=== PATIENT | female | born 1955 | race African-American/Black ===

== ENCOUNTER 2017-01-10 23:46 | Inpatient (IN) | payer OTHER ==
--- NOTE | ~2017-01-10 | EGD ---
EGD REPORT [facility] [address] [id number] NAME: KIM SANTANA : [birth year] STATUS : ADM IN PAT#: [id number] AGE: 61 ADM/REG DATE : 01/11/17 MR#: [id number] REPORT SERV DATE: 01/12/17 DICTATED BY: JENNIFER NUNO DATE: 01/12/17 REPORT STATUS : Draft TRANSCRIBED BY: [employer] DATE: 01/12/17 [facility] Patient Name: Kim Santana Date of : 1955 Attending MD: JENNIFER NUNO, Procedure Date No Time: 01/12/2017 Procedure: Upper GI endoscopy Indications: Abdominal pain, Hematemesis Medicines: Propofol per Anesthesia Complications: No immediate complications. Estimated blood loss: None. Procedure: Pre-Anesthesia Assessment: - ASA Grade Assessment: III - A patient with severe systemic disease. After obtaining informed consent, the endoscope was passed under direct vision. Throughout the procedure, the patient's blood pressure, pulse, and oxygen saturations were monitored continuously. The GIF [id number] was introduced through the mouth, and advanced to the second part of duodenum. The upper GI endoscopy was accomplished with ease. The patient tolerated the procedure well. Findings: LA Grade D (one or more mucosal breaks involving at least 75% of esophageal circumference) esophagitis with no bleeding was found 35 to 40 cm from the incisors. Biopsies were taken with a cold forceps for histology. Estimated blood loss: none. The Z-line was found 40 cm from the incisors. No gross lesions were noted in the stomach. The duodenal bulb and 2nd part of the duodenum were normal w exception of diminuitive non-bleeding AVM in the proximal D2. Impression: - LA Grade D esophagitis. Biopsied. - Z-line 40 cm from the incisors. - No gross lesions in the stomach. - Diminuitive, non-bleeding AVM (prox D2) - Normal duodenal bulb and 2nd part of the duodenum. Recommendation: - Return patient to hospital varghese for ongoing care. - Full liquid diet and advance as tolerated. - Use Protonix (pantoprazole) 40 mg PO BID for 8 weeks. - No aspirin, ibuprofen, naproxen, or other non-steroidal anti-inflammatory drugs. - Follow an antireflux regimen. - Await pathology results. EGD REPORT [place] [id number] [facility] [place]. [address] NAME: KIM SANTANA : [birth year] STATUS : ADM IN [facility]#: [id number] AGE: 61 ADM/REG DATE : 01/11/17 MR#: [id number] REPORT SERV DATE: 01/12/17 DICTATED BY: JENNIFER NUNO DATE: 01/12/17 REPORT STATUS : Draft TRANSCRIBED BY: [employer] DATE: 01/12/17 - Return to GI clinic in 4 weeks. Procedure Code(s): --- Professional --- 28216, Esophagogastroduodenoscopy, flexible, transoral; with biopsy, single or multiple Diagnosis Code(s): --- Professional --- K20.9, Esophagitis, unspecified R10.9, Unspecified abdominal pain K92.0, Hematemesis CPT copyright 2013 [employer] [place] [employer]. All rights reserved. The codes documented in this report are preliminary and upon vocational rehab consultant review may be revised to meet current compliance requirements. JENNIFER NUNO, 01/12/2017 12:56 PM This report has been signed electronically. Number of Addenda: 0 Note Initiated On: 01/12/2017 12:23 PM Scope Withdrawal Time 0 hours 0 minutes 0 seconds [id number] [id number]
--- NOTE | ~2017-01-10 | HP ---
History And Physical [facility] [address] [place]. [address] NAME: MACEY SANTANA : [birth year] STATUS : REG ER PAT#: [id number] AGE: 61 ADM/REG DATE : 01/10/17 MR#: [id number] REPORT SERV DATE: 01/11/17 DICTATED BY: ANDREW CHAVEZ DATE: 01/11/17 REPORT STATUS : Draft TRANSCRIBED BY: MODL DATE: 01/11/17 DATE OF ADMISSION: 01/10/2017 CHIEF COMPLAINT: Abdominal pain and vomiting. HISTORY OF PRESENT ILLNESS: This is a 61-year-old female, who communicates via writing on a clipboard or sign language as she has complete hearing loss. She presents to the emergency room at [facility] with the above-mentioned complaints. 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 Information on the [employer] system was also reviewed by me today. According to the patient, she had started having severe abdominal pain today which was associated with vomiting. She says the vomitus has blood in it. A detailed history could not be obtained due to the barriers mentioned above. However, the patient did not fall down or pass out. She was brought to the emergency room subsequently. In the emergency room, her Gastroccult was positive, she had an acute upper gastrointestinal bleed. Her H and H were stable at this time. She also had hyperkalemia and acute kidney injury. Hospitalist Service is asked to admit her for further evaluation and treatment. At the time of my evaluation, she denied any chest pain or palpitations. She had no orthopnea obviously. She had no cough, hemoptysis, night sweats, or weight loss recently. She has not had any fevers or chills. No history of falls or loss of consciousness. She did have nausea with vomiting as mentioned above with abdominal pain which she states is generalized all over her abdomen. PAST MEDICAL HISTORY: Significant for gastroesophageal reflux disease. SOCIAL HISTORY: She does not smoke, drink. She has complete hearing loss, and communicates via writing on a clipboard. FAMILY HISTORY: Noncontributory. MEDICATIONS: Reviewed in the chart today. REVIEW OF SYSTEMS: As in history of present illness. All other systems were reviewed in detail and are quite unremarkable. PHYSICAL EXAMINATION: GENERAL: This is a 61-year old who has complete hearing loss as mentioned above. She is alert, awake, oriented. HEENT: Her head appears to be atraumatic, normocephalic. Her pupils are equal, reacting to light and accommodating. External ocular muscles are intact. Membranes are moist and pink. Sclerae are nonicteric. NECK: Supple with no jugular venous distention, lymphadenopathy, or thyromegaly. History And Physical [address] [address] NAME: MACEY SANTANA : [birth year] STATUS : REG ER PAT#: [id number] AGE: 61 ADM/REG DATE : 01/10/17 MR#: [id number] REPORT SERV DATE: 01/11/17 DICTATED BY: ANDREW HCAVEZ DATE: 01/11/17 REPORT STATUS : Draft TRANSCRIBED BY: THAO DATE: 01/11/17 LUNGS: Clear to auscultation with no wheezes, rubs, or crackles. HEART: Heart sounds were regular with no murmurs, rubs, or gallops. ABDOMEN: Diffusely tender without any guarding or rigidity. There is no rebound tenderness. Bowel sounds are present. EXTREMITIES: Showed no cyanosis, clubbing, or edema. NEUROLOGIC: Grossly intact. She was able to move all four extremities. LABORATORY DATA: Reviewed on the [employer] system showed a sodium of 140, potassium was 5.8, chloride 108, and CO2 of 24. BUN was 36 with a creatinine of 2.28 which is up from 1.02 which was in May of 2014. We do not have any values in between. Her blood glucose was 127 today. Her alkaline phosphatase was 181, ALT was 90, AST 78, and lipase was 274 today. CBC showed a normal white blood cell count, hemoglobin was 15.8, hematocrit 47.4, and platelet count was 313,000. Her prothrombin time was 12.7 with an INR of 1.0. Again Gastroccult was positive today. Films of the CT scan of the abdomen and pelvis were reviewed by me on the PACS today and interpreted by me. Official radiology report was also reviewed. Per radiology report, there is no acute abdominal or pelvic pathology. There is nonobstructing right nephrolithiasis and chronic atrophy of the right kidney. Old posttraumatic changes in the left hemipelvis status post hysterectomy. A 12-lead EKG done in emergency room was reviewed and interpreted by me. There is sinus tachycardia at a rate of [address] elevations. IMPRESSION: 1. Abdominal pain. 2. Acute upper gastrointestinal bleed. 3. Acute kidney injury. 4. Hyperkalemia. 5. Gastroesophageal reflux disease. PLAN: We will admit Mrs. Santana to the Hospitalist Service with telemetry for close monitoring. We will keep her n.p.o. for now, start her on a Protonix infusion intravenously, and go ahead and consult Gastroenterology Service to see her in the morning. We will do a type and cross, follow serial hemoglobin hematocrit levels, and transfuse if needed. We will also be following chemistry, electrolytes, and replete as needed. Her hyperkalemia was treated in the emergency room, she was given intravenous insulin and dextrose, an amp of calcium gluconate intravenously, and sodium bicarbonate intravenously as well. We will follow her potassium levels as mentioned above. We will also start her on IV fluids for volume resuscitation. She will be on SCDs for DVT prophylaxis while here. I did explain to her that she will be kept n.p.o. for endoscopy. She is pretty intelligent and seems to understand quite easily. Hospitalist Service will be following her during her stay here. /THAO Andrew Chavez, History And Physical [address] [address] NAME: MACEY SANTANA : 51 STATUS : REG ER PAT#: [id number] AGE: 61 ADM/REG DATE : 01/10/17 MR#: [id number] REPORT SERV DATE: 01/11/17 DICTATED BY: ANDREW CHAVEZ DATE: 01/11/17 REPORT STATUS : Draft TRANSCRIBED BY: THAO DATE: 01/11/17 Ivan / [id number]
--- NOTE | ~2017-01-10 | DS ---
Discharge Summary [facility] [address] [place]. [address] NAME: MACEY SANTANA : 51 STATUS : DIS IN PAT#: [id number] AGE: 61 ADM/REG DATE : 01/11/17 MR#: [id number] REPORT SERV DATE: 01/13/17 DICTATED BY: TIM BLAIR DATE: 01/13/17 REPORT STATUS : Draft TRANSCRIBED BY: MODL DATE: 01/13/17 ADMISSION DATE: 01/11/2017 DISCHARGE DATE: 01/13/2017 DISCHARGE DIAGNOSES: 1. Grade D esophagitis. 2. Abdominal pain. 3. Acute upper gastrointestinal bleed. 4. Acute kidney injury, resolved. 5. Hyperkalemia, resolved. 6. Gastroesophageal reflux disease. 7. Deafness. CONSULTS: GI. PROCEDURES: EGD performed on 01/12/2017 revealed grade D esophagitis without any acute bleeding. HOSPITAL COURSE: This is a 61-year-old lady who was admitted to the hospital with initial diagnosis of abdominal pain and acute upper GI bleed. For details, please refer to the excellent H and P dictated by Dr. Andrew Chavez. In summary, the patient was admitted and was given IV fluid resuscitation and was treated with Protonix drip. The patient's H and Hs were monitored closely. GI consultation was requested. The patient was seen by Dr. Giraldo and underwent an EGD with the findings as noted above. Biopsies were taken, which will be followed up as an outpatient. Dr. Giraldo recommended the patient to be on Protonix 40 mg p.o. b.i.d. for at least eight weeks. The patient was also recommended against taking aspirin or other NSAIDs. The patient never really required any blood transfusions and the patient remained hemodynamically stable throughout the entire hospital stay. The patient is now being discharged home with close outpatient followup plans. DISPOSITION: Home. DISCHARGE MEDICATIONS: Protonix 40 mg p.o. b.i.d. as a new medication, otherwise, no changes. FOLLOWUP: 1. Please follow up with PCP in the next one to two weeks. 2. Please follow up with GI as instructed. Total of 25 minutes spent in coordinating this patient's discharge today. DICTATED BY: Tim Blair MD [facility] Discharge Summary [place] [id number] [facility] [place]. [address] NAME: MACEY SANTANA : 51 STATUS : DIS IN PAT#: [id number] AGE: 61 ADM/REG DATE : 01/11/17 MR#: [id number] REPORT SERV DATE: 01/13/17 DICTATED BY: TIM BLAIR DATE: 01/13/17 REPORT STATUS : Draft TRANSCRIBED BY: THAO DATE: 01/13/17 Tim Blair MD / [id number] CC: Tim Blair MD
[2017-01-10 22:08] LABS: BASOPHILS 0.4 %; BASOPHILS ABSOLUTE 0.04 10/3/uL (0.0-0.16); EOSINOPHILS 0.3 %; EOSINOPHILS ABSOLUTE 0.03 10/3/uL (0.0-0.53); IMMATURE GRANULOCYTES 0.4 %; IMMATURE GRANULOCYTES ABSOLUTE 0.04 10/3/uL (0.0-0.11); LYMPHOCYTES 30.4 %; LYMPHOCYTES ABSOLUTE 2.92 10/3/uL (0.67-4.30); MEAN CORPUS HGB CONC 33.3 g/dL (32.0-36.0); MEAN CORPUSCULAR HEMOGLOB 29.3 pg (26.0-34.0); MEAN CORPUSCULAR VOLUME 87.8 fL (80-100); MEAN PLATELET VOLUME 11.1 fL (9.2-13.0); MONOCYTES 5.1 %; MONOCYTES ABSOLUTE 0.49 10/3/uL (0.21-1.20); NEUTROPHILS 63.4 %; PLATELET COUNT 313 10/3/uL (150-400); RBC DISTRIBUTION WIDTH 13.2 % (12.0-16.0)
[2017-01-10 22:11] LABS: ER CBC TAT 0 Hrs 07 Mins; HEMATOCRIT 47.4 % (36.0-48.0); HEMOGLOBIN 15.8 g/dL (12.0-16.0); MANUAL DIFF NO %; WHITE BLOOD CELLS 9.6 10/3/uL (4.5-10.5)
[2017-01-10 22:17] LABS: PARTIAL THROMBO TIME 30.9 SEC (22.5-37.2); PROTIME (NOT ORD) 12.7 SEC (12.0-14.5)
[2017-01-10 22:22] LABS: ALBUMIN 4.3 G/DL (3.5-5.0); CALCIUM, SERUM 9.8 MG/DL (8.5-10.4); CHLORIDE, SERUM 108 MMOL/L (96-112); CO2 (CARBON DIOXIDE) 24 MMOL/L (24-34); POTASSIUM, SERUM 5.8 MMOL/L (3.5-5.3); SGOT(AST) 78 U/L (5-40); SGPT(ALT) 90 U/L (5-65); SODIUM, SERUM 140 MMOL/L (135-148); TOTAL BILIRUBIN 0.5 MG/DL (0-1.2)
[2017-01-10 22:25] LABS: A/G RATIO 0.9 (0.7-1.9); ALKALINE PHOSPHATASE 181 U/L (45-117); BUN (BLOOD UREA NITROGEN) 36 MG/DL (6-23); CREATININE 2.28 MG/DL (0.55-1.02); GFR AFRICAN AMERICAN 26 ML/MIN (>=60); GFR NON AFRICAN AMERICAN 22 ML/MIN (>=60); GLOBULIN 4.6 G/DL (2.5-4.1); GLUCOSE, SERUM 127 MG/DL (60-99); TOTAL PROTEIN 8.9 G/DL (6.0-8.5)
[~2017-01-10 23:46] MED LIST: CARTIA XT240 MG/24 PO; FLONASE NAS; GGEXPUD PO; KENCR.1 TOP; PREM625 PO; PRILO PO; PRIN10 PO; SENOKOTS PO; SEROQUEL1C PO; TRILEP300 PO; VENTOLIN HFA INH; VITAMIN D400 UNI1 PO
[2017-01-11 04:43] LABS: HEMOGLOBIN 12.9 g/dL (12.0-16.0)
[2017-01-11 04:45] LABS: HEMATOCRIT 39.2 % (36.0-48.0)
[2017-01-11 12:58] LABS: BUN (BLOOD UREA NITROGEN) 35 MG/DL (6-23); CHLORIDE, SERUM 115 MMOL/L (96-112); CO2 (CARBON DIOXIDE) 24 MMOL/L (24-34); GAMMA GT 321 U/L (5-85); PHOSPHORUS, SERUM 3.3 MG/DL (2.5-4.5); POTASSIUM, SERUM 4.9 MMOL/L (3.5-5.3); SODIUM, SERUM 145 MMOL/L (135-148)
[2017-01-11 12:59] LABS: CREATININE 1.76 MG/DL (0.55-1.02); GFR AFRICAN AMERICAN 35 ML/MIN (>=60); GFR NON AFRICAN AMERICAN 30 ML/MIN (>=60); GLUCOSE, SERUM 85 MG/DL (60-99)
[2017-01-11 13:03] LABS: BASOPHILS 0.2 %; BASOPHILS ABSOLUTE 0.02 10/3/uL (0.0-0.16); EOSINOPHILS 0.5 %; EOSINOPHILS ABSOLUTE 0.05 10/3/uL (0.0-0.53); HEMATOCRIT 37.7 % (36.0-48.0); HEMOGLOBIN 12.9 g/dL (12.0-16.0); IMMATURE GRANULOCYTES 0.4 %; IMMATURE GRANULOCYTES ABSOLUTE 0.04 10/3/uL (0.0-0.11); LYMPHOCYTES 38.1 %; LYMPHOCYTES ABSOLUTE 3.51 10/3/uL (0.67-4.30); MEAN CORPUS HGB CONC 34.2 g/dL (32.0-36.0); MEAN CORPUSCULAR HEMOGLOB 29.5 pg (26.0-34.0); MEAN CORPUSCULAR VOLUME 86.1 fL (80-100); MEAN PLATELET VOLUME 11.7 fL (9.2-13.0); MONOCYTES ABSOLUTE 0.92 10/3/uL (0.21-1.20); NEUTROPHILS 50.8 %; NEUTROPHILS ABSOLUTE 4.68 10/3/uL (2.02-8.40); NUCLEATED RED BLOOD CELLS 0.9 /100WBC (0-0); PLATELET COUNT 197 10/3/uL (150-400); RBC DISTRIBUTION WIDTH 13.2 % (12.0-16.0); RED CELL COUNT 4.38 10/6/uL (4.0-5.6); WHITE BLOOD CELLS 9.2 10/3/uL (4.5-10.5)
[2017-01-11 13:04] LABS: MANUAL DIFF NO %
[2017-01-11 18:09] LABS: HEMATOCRIT 38.6 % (36.0-48.0); HEMOGLOBIN 12.6 g/dL (12.0-16.0)
[2017-01-11] MEDS ORDERED: FLONASE NAS ×2 (18:28→19:17)
[2017-01-11] MEDS ORDERED: NORV10 PO ×2 (18:29→19:16)
[2017-01-11] MEDS ORDERED: PRIN20 PO ×2 (18:29→19:17)
[2017-01-11] MEDS ORDERED: FLEX PO ×2 (18:30→19:17)
[2017-01-11] MEDS ORDERED: CLARIT10 PO ×2 (18:30→19:18)
[2017-01-11] MEDS ORDERED: SEROQUEL300 MG PO ×2 (18:31→19:18)
[2017-01-11 21:39] LABS: HEMATOCRIT 37.6 % (36.0-48.0); HEMOGLOBIN 12.2 g/dL (12.0-16.0)
[2017-01-12 13:53] LABS: ASCORBIC ACID (UR NOT ORDER) NEG (NEG); BILIRUBIN, URINE NEGATIVE (NEG); KETONE, URINE NEGATIVE (NEG); LEUKOCYTE ESTERASE(NOT OR MOD (NEG); WBC (NOT ORDERED) (RFLEX) 5 (0-5)
[2017-01-12 17:04] LABS: HEMATOCRIT 37.1 % (36.0-48.0); HEMOGLOBIN 12.1 g/dL (12.0-16.0)
[2017-01-12 22:57] LABS: HEMATOCRIT 35.7 % (36.0-48.0); HEMOGLOBIN 11.5 g/dL (12.0-16.0)
[2017-01-13] MEDS ORDERED: PROTONIX PO (15:30)
== END 2017-01-13 16:47 | disposition home or self-care (01) | DRG 392 ==
LOC: ER 23:46 → ER/OF 01-11 05:03 → 4SO 01-11 06:12
PROVIDERS: Emergency Medicine; Hospitalist; Internal Medicine Gastroenterology; Internal Medicine Pulmonary Disease
PROC: 0DB58ZX Excision of Esophagus, Via Natural or Artificial Opening Endoscopic, Diagnostic (ICD-10-PCS; principal; 2017-01-12 12:39)
DX: K21.0 Gastro-esophageal reflux disease with esophagitis (principal); N17.9 Acute kidney failure, unspecified; K92.0 Hematemesis; E87.5 Hyperkalemia; K20.9 Esophagitis, unspecified; K21.9 Gastro-esophageal reflux disease without esophagitis; H91.93 Unspecified hearing loss, bilateral; N20.0 Calculus of kidney; H91.90 Unspecified hearing loss, unspecified ear; Z86.73 Personal history of transient ischemic attack (TIA), and cerebral infarction without residual deficits; I25.10 Atherosclerotic heart disease of native coronary artery without angina pectoris; I25.2 Old myocardial infarction; J44.9 Chronic obstructive pulmonary disease, unspecified; E66.9 Obesity, unspecified; Z68.37 Body mass index [BMI] 37.0-37.9, adult; R00.0 Tachycardia, unspecified; I10 Essential (primary) hypertension
CPT/HCPCS: 36415; 74176; 80048; 80053; 81001; 82962; 82977; 83690; 83735; 84100; 85014; 85018; 85025; 85610; 85730; 86850; 86870; 86900; 86901; 87086; 88305; 93005; 96374; 96375; 99285; A9270-GY; C9113; J0610; J2405